=== PATIENT | male | born 1960 | race Caucasian/White ===

== ENCOUNTER 2021-04-30 19:04 | Emergency (ER) | payer BC, OTHER ==
[2021-04-30 19:36] VITALS: BP 128/83; PULSE 56; TEMP 98.2; BMI 26.9
== END 2021-04-30 21:15 | disposition home or self-care (01) ==
LOC: FER 19:04
DX: S63.92XA Sprain of unspecified part of left wrist and hand, initial encounter (principal); V18.0XXA Pedal cycle driver injured in noncollision transport accident in nontraffic accident, initial encounter; X50.0XXA Overexertion from strenuous movement or load, initial encounter
CPT/HCPCS: 73030-TC-LT-FY; 73130-TC-LT-FY; 73130-TC-RT-FY; 99285-25